=== PATIENT | male | born 1975 | race Caucasian/White ===

== ENCOUNTER 2020-09-29 14:07 | Emergency (ER) | payer OTHER, SELFPAY ==
[2020-09-29 14:24] VITALS: BP 145/82; PULSE 71; RESP 18; TEMP 36.4; O2SAT 97
[2020-09-29 14:27] VITALS: BP 145/82; PULSE 71; RESP 18; TEMP 36.4; O2SAT 97
--- NOTE | 2020-09-29 14:36 | ED.GENADULT ---
HPI - General Adult General Chief complaint: Extremity Injury, Lower Stated complaint: Foot Pain Time Seen by Provider: 09/29/20 14:23 Source: patient and RN notes reviewed Mode of arrival: ambulatory Limitations: no limitations History of Present Illness HPI narrative: Patient presents today with a 2-week history of right foot pain at the base of the great toe. He believes he is having a gout flare. History of gout in the past and states that he just had a flare in his left ankle that is still improving. He has tried to follow-up with his primary care nurse practitioner, but she is currently not having surgery and the person replacing her does not currently have any open appointment times. He has been taking ibuprofen without relief. No pain at rest, but pain increases to 9/10 with weightbearing. 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 States he has decreased his beer intake over the past month, but states he has been eating more sausage than he ever has before in the form of breakfast biscuits. He has taken indomethacin in the past and reports that it causes severe sedation symptoms. MD complaint: Possible gout flare Related Data Home Medications Medication Instructions Recorded Confirmed Celexa 09/29/20 losartan 09/29/20 nebivolol [Bystolic] mg 09/29/20 Allergies Allergy/AdvReac Type Severity Reaction Status Date / Time cefaclor Allergy Mild Unverified 01/18/09 12:18 Review of Systems Review of Systems: Narrative: CONSTITUTIONAL: Denies body aches, fever, chills, or sweats. EYES: Denies visual changes, redness, or discharge. ENT: Denies rhinorrhea, congestion, sore throat, or otalgia. CARDIOVASCULAR: Denies chest pain, palpitations, or edema. RESPIRATORY: Denies cough or dyspnea. GASTROINTESTINAL: Denies abdominal pain, nausea, vomiting, or diarrhea. GENITOURINARY: Denies dysuria or hematuria. SKIN: Denies rash, itching, or wounds. MUSCULOSKELETAL: Denies back pain, or myalgia. + Right foot pain and swelling NEUROLOGIC: Denies headache, numbness, tingling, or weakness. PSYCH: Denies depression or anxiety. [facility] Past Medical History Medical History (Updated 09/29/20 @ 14:48 by Chey Shaikh, AERONAUTICAL ENGINEERING TECHNOLOGIST, ) Gout Hypertension Comments At time of signature, I have reviewed and agree with nursing past medical, surgical, social and family history unless otherwise noted. Please see nursing chart for further information. There is no relevant family history pertinent to the presenting complaint Exam Narrative: Exam Narrative: GENERAL: Well-appearing, well-nourished, and in no acute distress. HEAD: Normocephalic, atraumatic. EYES: EOMI. No redness or drainage. Conjunctivae normal. ENT: Mucous membranes pink and moist. NECK: Normal AROM. CHEST: No respiratory distress. EXTREMITIES: Right foot: Mild erythema and edema to the right first MTP with tenderness to palpation. No additional tenderness to the remainder of the toe or metatarsal or the remainder of the foot. Distal sensation intact. Capillary refill normal. Pedal pulse normal. Full range of motion of toes 2 through 5 as well as the ankle. Somewhat decreased range of motion of toe #1 due to pain and swelling. SKIN: Warm, dry, no rash. Capillary refill normal. Normal skin turgor. NEURO: No focal deficits. Alert and oriented x3. Gait steady. PSYCH: Normal affect. No signs of depression or anxiety. Course Vital Signs Vital signs: Vital Signs Temperature 97.6 F 09/29/20 14:24 Pulse Rate 71 09/29/20 14:24 Respiratory Rate 18 09/29/20 14:24 Blood Pressure 145/82 H 09/29/20 14:24 Pulse Oximetry 97 09/29/20 14:24 Temperature 97.6 F 09/29/20 14:27 Pulse Rate 71 09/29/20 14:27 Respiratory Rate 18 09/29/20 14:27 Blood Pressure 145/82 H 09/29/20 14:27 Pulse Oximetry 97 09/29/20 14:27 Reviewed. Pt has been instructed to follow up with his PCP regarding his elevated blood pressure today.
== END 2020-09-29 14:40 | disposition home or self-care (01) ==
PROVIDERS: Emergency Provider Nurse Practitioner
DX: M10.9 Gout, unspecified (principal); I10 Essential (primary) hypertension
CPT/HCPCS: 99213; G0463